=== PATIENT | female | born 1965 | race Caucasian/White ===

== ENCOUNTER 2017-02-18 21:56 | Emergency (ER) | payer OTHER ==
[2017-02-18] MEDS ORDERED: GI Cocktail Oral Solution 30 ML PO ONE (22:16)
--- NOTE | 2017-02-18 22:20 | EDM.PDOC ---
ED HPI GENERAL MEDICAL PROBLEM - General Chief Complaint: Cardiovascular Problem Stated Complaint: NEW PATIENT,SAADIA, [id number] Time Seen by Provider: 02/18/17 22:10 Source of Information: Reports: Patient History Limitations: Reports: No Limitations - History of Present Illness INITIAL COMMENTS - FREE TEXT/NARRATIVE: patient comes emergency Department today with complaints of burning in her mid sternum as well as sharp shooting pain that has been going on since about 10:00 this morning. She has been traveling most of the day in the car she ate a burrito this morning and is having quite a bit of midsternal pain since that time. She tried some Tums without resolution of her symptoms. She is more concerned about her symptoms since she has a symptoms about 2-3 times a week for the past couple of months and usually they respond well to Tums. She has no history of pancreatitis. She has had her gallbladder removed in the past. She has had some nausea without vomiting. No abdominal pain. No hematuria dysuria or urinary frequency. No shortness of breath cough fever or chills. The pain in her mid sternum does not radiate anywhere. She denies any diaphoresis. Chest Pain Score (Numeric/FACES): 6 - Related Data Allergies Allergy/AdvReac Type Severity Reaction Status Date / Time No Known Allergies Allergy Verified 02/18/17 22:00 Home Meds: Home Meds . [No Known Home Meds] 02/18/17 [History] Past Medical History HEENT History: Reports: None Cardiovascular History: Reports: None Respiratory History: Reports: None Gastrointestinal History: Reports: GERD Genitourinary History: Reports: None [employer] History: Reports: None Musculoskeletal History: Reports: None Neurological History: Reports: None Psychiatric History: Reports: None Endocrine/Metabolic History: Reports: None Hematologic History: Reports: None Immunologic History: Reports: None Oncologic (Cancer) History: Reports: None Dermatologic History: Reports: None - Past Surgical History GI Surgical History: Reports: Cholecystectomy Social & Family History - Tobacco Use Smoking Status *Q: Never Smoker - Caffeine Use Caffeine Use: Reports: Coffee ED ROS GENERAL - Review of Systems Review Of Systems: ROS reveals no pertinent complaints other than HPI. ED EXAM, GENERAL - Physical Exam Exam: See Below Exam Limited By: No Limitations General Appearance: Alert, WD/WN, No Apparent Distress Ears: Normal External Exam Nose: Normal Inspection Throat/Mouth: Normal Inspection, Normal Lips, Normal Teeth, Normal Gums Head: Atraumatic, Normocephalic Neck: Normal Inspection, Supple, Non-Tender. No: Carotid Bruit Respiratory/Chest: No Respiratory Distress, Lungs Clear, Normal Breath Sounds, No Accessory Muscle Use, Chest Non-Tender Cardiovascular: Normal Peripheral Pulses, Regular Rate, Rhythm, No Edema, No JVD , No Murmur Peripheral Pulses: 2+: Radial (L), Radial (R), Posterior Tibial (L), Posterior Tibial (R), Dorsalis Pedis (L), Dorsalis Pedis (R) GI/Abdominal: Normal Bowel Sounds, Soft, No Organomegaly, No Distention, No Abnormal Bruit, Tender (mild tenderness in the epigastric region. No guarding or rebound tenderness. No right upper quadrant tenderness.) (Female) Exam: Deferred Rectal (Female) Exam: Deferred Back Exam: Normal Inspection, Full Range of Motion. No: CVA Tenderness (L), CVA Tenderness (R) Extremities: Normal Inspection, Normal Range of Motion, Non-Tender, No Pedal Edema, Normal Capillary Refill Neurological: Alert, Oriented, CN II-XII Intact Psychiatric: Normal Affect, Normal Mood Skin Exam: Warm, Dry, Intact, Normal Color Lymphatic: No Adenopathy EKG INTERPRETATION EKG Date: 02/18/17 Time: 22:05 Rhythm: NSR Rate (Beats/Min): 63 [place]: Normal P-Wave: Present QRS: Normal ST-T: Normal QT: Normal Comparison: NA - No Prior EKG Course - Vital Signs Last Recorded V/S: Last Vital Signs Temp 36.1 C 02/18/17 22:01 Pulse 77 02/18/17 22:01 Resp 18 02/18/17 22:01 BP 159/78 H 02/18/17 22:01 Pulse Ox 100 02/18/17 22:01 - Orders/Labs/Meds Orders: Active Orders 24 hr Category Date Time Status EKG 12 Lead [EKG Documentation Completion] [RC] STAT Care 02/18/17 22:11 Active Labs: Laboratory Tests 02/18/17 02/18/17 Range/Units 22:21 22:21 WBC 9.8 (5.0-10.0) 10^3/uL RBC 5.41 H (4.2-5.4) 10^6/uL Hgb 15.3 (12.0-16.0) g/dL Hct 46.0 (37.0-47.0) % MCV 85.0 (80-100) fL MCH 28.3 (27.0-34.0) pg MCHC 33.3 (33.0-35.0) g/dL Plt Count 213 (150-450) 10^3/uL Neut % (Auto) 57.1 (42.2-75.2) % Lymph % (Auto) 32.5 (20.5-50.1) % [place] % (Auto) 6.4 (2-8) % Eos % (Auto) 3.7 H (1.0-3.0) % Baso % (Auto) 0.3 (0.0-1.0) % Sodium 141 (135-145) mmol/L Potassium 3.7 (3.6-5.0) mmol/L Chloride 104 (101-111) mmol/L Carbon Dioxide 22.0 (21.0-31.0) mmol/L Anion Gap 18.7 BUN 9 (7-18) mg/dL Creatinine 0.8 (0.6-1.3) mg/dL Est Cr Clr Drug Dosing 61.37 mL/min Estimated GFR (MDRD) > 60 BUN/Creatinine Ratio 11.25 Glucose 101 (74-105) mg/dL Calcium 10.1 (8.4-10.2) mg/dl Total Bilirubin 0.6 (0.2-1.0) mg/dL AST 29 (10-42) IU/L ALT 19 (10-60) IU/L Alkaline Phosphatase 53 (42-121) IU/L Troponin I < 0.02 (0.00-0.02) ng/ml Total Protein 7.2 (6.7-8.2) g/dl Albumin 4.2 (3.2-5.5) g/dl Globulin 3.0 Albumin/Globulin Ratio 1.40 Lipase 25 (22-51) U/L Meds: Medications Discontinued Medications Generic Name Dose Route Start Last Admin Trade Name Freq PRN Reason Stop Dose Admin Al Hydroxide/Mg Hydroxide 30 ml 02/18/17 22:16 02/18/17 22:19 Gi Cocktail PO 02/18/17 22:17 30 ml ONETIME ONE Administration - Re-Assessments/Exams Free Text/Narrative Re-Assessment/Exam: 02/18/17 22:19 Gi Cocktail. With almost complete resolution of the patients symptoms. 02/18/17 23:14 negative cardiac evaluation as well as EKG were relayed to the patient. She feels much better following the GI cocktail. We'll treat her for 28 days for gastroesophageal reflux disease as well as [id number] Maalox or Mylanta in conjunction with Prilosec. Prescription given to the patient. Follow up closely with primary care for further evaluation for possible Helicobacter pylori or peptic ulcer disease. Discharge instructions are explained to the patient she was comfortable with this plan and her questions are answered Departure - Departure Time of Disposition: 23:14 Disposition: Home, Self-Care 01 Clinical Impression: Chest pain, non-cardiac Gastroesophageal reflux disease Qualifiers: Esophagitis presence: esophagitis presence not specified Qualified Code(s): K21.9 - Gastro-esophageal reflux disease without esophagitis Instructions: Gastroesophageal Reflux Disease, Adult Forms: ED Department Discharge Additional Instructions: OTC Maalox or Mylanta for symptoms. Prilosec 1 tablet every day to prevent symptoms for the next 28 days. RX given to the patient. Stay away from fatty or spicy foods rich foods or other foods that make your heartburn symptoms worse. Follow up with primary care for possible EGD or testing for H Pylori. Return to the ED if new or worsening symptoms or symptoms not resolved with above therapy. - My Orders Last 24 Hours: My Active Orders 02/18/17 22:11 EKG 12 Lead [EKG Documentation Completion] [RC] STAT - Assessment/Plan Last 24 Hours: My Active Orders 02/18/17 22:11 EKG 12 Lead [EKG Documentation Completion] [RC] STAT Assessment:: Chest pain non-cardiac GERD Plan: OTC Maalox or Mylanta for symptoms. Prilosec 1 tablet every day to prevent symptoms for the next 28 days. RX given to the patient. Stay away from fatty or spicy foods rich foods or other foods that make your heartburn symptoms worse. Follow up with primary care for possible EGD or testing for H Pylori. Return to the ED if new or worsening symptoms or symptoms not resolved with above therapy.
[2017-02-18 22:47] LABS: CHLORIDE,CL 104 mmol/L (101-111); SODIUM,NA 141 mmol/L (135-145)
--- NOTE | 2017-02-19 11:25 | EKG ---
02/18/2017 - AUGUSTINE RIZO - TIME: 2205 hours. EKG shows normal sinus rhythm, rate of 63 per minute. [facility] /[id number]
== END 2017-02-18 23:21 | disposition home or self-care (01) ==
LOC: DL.ED 21:56
DX: K21.9 Gastro-esophageal reflux disease without esophagitis (principal)
CPT/HCPCS: 36415; 80053; 83690; 84484; 85025; 93005; 99285; A9270